=== PATIENT | male | born 1965 | race Caucasian/White ===

== ENCOUNTER → 2023-04-01 | Outpatient (CLI) | payer OTHER ==
--- NOTE | 2023-04-02 06:37 | MR ---
EXAMINATION TYPE: MR lumbar spine wo con DATE OF EXAM: 04/01/2023 COMPARISON: NONE HISTORY: Low back pain that radiates down both legs worse in left leg for one year. Neurogenic claudi cation and lumbar spondylolisthesis per order. TECHNIQUE: Multiplanar, multisequence imaging of the lumbar spine is performed without IV contrast. FINDINGS: There is levoconvex scoliosis centered at L3-L4 level . There is slight grade 1 retrolisthe sis L2 on L3, L3 and L4, and L4 on L5. Sagittal images of the lumbar spine show vertebral body height s to appear satisfactory. Multilevel disc desiccation is seen. There is advanced disc space narrowing with heterogeneous Modic type III endplate changes at the right L3-L4 level. There is moderate disc space narrowing with heterogeneous Modic type I endplate changes and vacuum disc phenomenon and L5-S1 level. There is gjep-hh-xoqwlgor disc space narrowing at L2-L3 level. The conus medullaris is raul l in position and signal ending at L1-L2 disc space level. Tiny posterior disc herniations efface the anterior thecal sac at T10-T11 and T11-T12 level sagittal image 11. Axial images at T12-L1 level appear within normal limits. Axial images at L1-L2 level show mild broad disc bulge minimally effacing the anterior thecal sac. Pa tent bilateral neural foramina. Axial images at L2-L3 level show spondylolisthesis with mild to moderate broad disc bulge mildly effa cing the anterior thecal sac. There is mild right-sided neural foraminal narrowing. Axial images at L3-L4 level show spondylolisthesis with moderate broad disc bulge having right latera l disc protrusion component. There is effacement of the anterior thecal sac. There is mild to moderat e bilateral facet arthropathy and ligamentum flavum hypertrophy. There is mild/moderate left and adva nced right-sided neural foraminal narrowing encroaching on the right L3 nerve axial image 14 and sagi ttal image 12. Axial images at L4-L5 level shows kzyu-vq-fskwjdvl facet arthropathy bilaterally. There is broad-base d posterior disc protrusion. There is mild to moderate right and more advanced left-sided neural fora jay narrowing encroaching on left L4 nerve sagittal image 4 and axial image 9. Axial images at L5-S1 level show mild to moderate facet arthropathy bilaterally. There is increased e pidural fat at this level. There is broad-based posterior disc protrusion. There is mild right with m ore moderate to severe left-sided neural foraminal narrowing sagittal image 6. Paraspinal muscle bulk is maintained. IMPRESSION: Scoliosis with multilevel spondylolisthesis and degenerative change in the mid to lower l umbar spine as detailed above. Bilateral exiting nerve encroachment is felt present.
== END | disposition home or self-care (01) ==
LOC: RADMRIMAIN 15:34
PROVIDERS: ATTEND Orthopaedic Surgery
DX: M43.16 Spondylolisthesis, lumbar region (principal); M47.816 Spondylosis without myelopathy or radiculopathy, lumbar region; M41.9 Scoliosis, unspecified
CPT/HCPCS: 72148

== ENCOUNTER → 2023-05-19 | Outpatient (CLI) | payer OTHER ==
[2023-05-19 14:39] VITALS: BP 117/80; PULSE 99; RESP 16; TEMP 98.2
--- NOTE | 2023-05-19 15:30 | P.PAINPG ---
PQRS Measure Charge Sheet Comment: HISTORY OF PRESENT ILLNESS: 57 yr old male w mother & sister at side as a referral from Dr Calderon presents today w severe and chronic LBP secondary to spondylolisthesis, DDD and facet arthropathy without myelopathy for evaluation. Pt states pain level is provoked at 8 /10 in intensity, constant, localized in the lower lumbar spine, sharp, achy in character w shooting pain towards the BLEs, L >R. Pain is provoked by walking, standing or driving for periods of 15 min r more. Pain is alleviated by medications (Suboxone, Flexeril, Sulindac), ice, Pt x 6 wks in March 2023, massage therapy without relief, chiropractic treatments without relief, sleeping w a wedge, bending, home based stretching regimen and rest. PMH: OA, HTN, MDD, GERD PSH: Tonsillectomy in childhood SH: Negative x3. Retired transportation maintenance worker. FH: Non contributory All: See list Meds: See list REVIEW OF ORGAN SYSTEMS: CONSTITUTIONAL: No fevers or chills. No recent weight loss. NEUROLOGICAL: + numbness and tingling along the distal extremities. No seizure disorders or headaches. MUSCULOSKELETAL: + pain PSYCHIATRIC: Denies current depression or suicidal thoughts. Physical Examinations : Constitutional : Cooperative , not in acute distress . Neurologic : Cranial nerve II to XII intact. No focal neurological deficits. Psychiatric : alert & oriented x 3. Matching mood & appropriate affect. Judgment & insight intact. Musculoskeletal : Cervical Spine Motor strength in the deltoid and biceps: Normal right side. Normal Left side Motor strength biceps and the wrist extensors: Normal right side . Normal left side Motor strength in the triceps muscle: Normal right side. Normal left side Deep tendon reflexes: Normal at the biceps. Normal at Brachioradialis. Normal at triceps Vertebral body tenderness to deep palpation over Cervical facet loading test: positive bilaterally Spurling test: positive bilaterally Neck distraction test: positive bilaterally Krishna sign: positive bilaterally Lumbar spine Motor strength lower extremities ,thigh and legs 5/5 Right side , 5/5 Left side Deep tendon reflexes : Normal Knee Jerk. Normal Ankle Jerk Vertebral body tenderness over L4 Pope Test positive Lumbar facet Loading Test: positive Right / positive Left Range of motion of the lumbar spine Flexion 30 degrees, extension 10 degrees Straight Leg Raise test: Left/ Right positive at <45 degrees Montez test: positive right / positive left. Severe tenderness over the Sacroiliac joint on the Right / Left sides Gaenslen test: positive bilaterally Seated flexion test: positive bilaterally. Sacral spine : Severe tenderness over the Sacroiliac joint: right side / left side Range of motion: Flexion of the lumbar spine <60 degrees Range of motion: Extension of the lumbar spine <20 degrees Gaenslen's Test positive Frank's Test positive Montez test: positive right side / left side Thigh Thrust Test Sacral Thrust Test Imaging: MRI noncontrast of the lumbar spine. 04/01/23 reviewed Assessment/ Plan : Lumbar spondylolisthesis Recommendation of MARGARETH L3-L4. May need a series of injections for optimal pain relief. Risks, benefits of procedure discussed and patient verbalized understanding. Admits to aspirin or anti- coagulant use or medical history of d iabetes. Protocol for discontinuation/ continuation of medications patti procedure discussed. Minimal anesthesia provided, if clinically indicated, consisting of Versed and Fentanyl. All questions answered. I have spent greater than 30 minutes on patient care today. Dr Spencer was available by phone for the evaluation of this patient. The time was used to review the medical records including relevant urine studies and Prescription history (MAPs), review of the available imaging, evaluation and examination of the patient, coordination of care with the medical staff and if applicable referring physicians, as well as creation of the medical record Controlled Substance Measures - Controlled Substance Measures Is patient prescribed a controlled substance at discharge?: No
== END ==
LOC: PNWHC3 12:47
PROVIDERS: ATTEND Specialist
DX: M43.16 Spondylolisthesis, lumbar region (principal); M48.062 Spinal stenosis, lumbar region with neurogenic claudication; M51.36 Other intervertebral disc degeneration, lumbar region; G89.29 Other chronic pain; M41.86 Other forms of scoliosis, lumbar region; M19.90 Unspecified osteoarthritis, unspecified site; M54.16 Radiculopathy, lumbar region; I10 Essential (primary) hypertension; K21.9 Gastro-esophageal reflux disease without esophagitis; F32.9 Major depressive disorder, single episode, unspecified; Z88.0 Allergy status to penicillin; Z79.899 Other long term (current) drug therapy
CPT/HCPCS: 99202

== ENCOUNTER → 2023-06-22 | Day surgery (SDC) | payer OTHER ==
[~2023-06-22] MED LIST: IOPAMIDOL M200 10 ML VIAL ONE; LACTATED RINGERS 1,000 ML IV SCH; methylPREDNISolone ACETATE 80 MG/ML 1 ML VIAL ONE
[2023-06-22 11:15] VITALS: RESP 16; TEMP 98
--- NOTE | 2023-06-22 11:40 | P.PCN ---
Date of Procedure: 06/22/23 Procedure(s) Performed: PREOPERATIVE DIAGNOSIS: 1- Lumbar Degenerative Disc Diseases 2-Lumbar spondylosis with Facet arthropathy without myelopathy POSTOPERATIVE DIAGNOSIS: 1-lumbar degenerative disc disease. 2-lumbar spondylosis with facet arthropathy without myelopathy. PROCEDURE 1. Lumbar epidural steroid injection under fluoroscopic guidance at the L3- 4level. (Fluoroscopy imaging was available in radiology department) 2. Lumbar epidurogram. ANESTHESIA: Lidocaine 1% 3 and then only. EBL: Minimal PROCEDURE INDICATION: The patient with low back pain and radiculitis symptoms unresponsive to conservative treatment. Fluoroscopy was used to optimize visualization of the needle placement and to maximize safety. PROCEDURE DESCRIPTION / TECHNIQUE: The patient was seen and identified in the preoperative area. Risks, benefits, complications including but not limited to infections ,bleeding ,allergic reaction to the medications ,nerve damage and not complete pain releife , and alternatives were discussed with the patient. The patient agreed to proceed with the procedure and signed the consent, and vital signs were stable. Patient was taken to the OR and time out was completed. The patient was placed in the prone position on procedure table and a pillow was placed under the abdomen to reduce lumbar lordosis. The lumbosacral area was prepped and draped in the usual sterile fashion.ere closely monitored during the procedure. Vital signs was monitered during the entire procedure. Using anterior-posterior fluoroscopy, the L3-4 interlaminar space was identified and the skin over this site was marked and then infiltrated with 1% lidocaine subcutaneously. Subsequently, a 20-gauge Tuohy epidural needle was inserted and advanced toward the epidural space using the ``Loss of resistance technique and guided by AP and lateral fluoroscopy. The correct needle position in the epidural space was verified with the injection of 2 mL of the water soluble contrast dye Isovue 200 contrast and observing an excellent epidurogram with the epidural spread of the dye, after negative aspiration for blood and CSF and in the absence of paresthesias. Again after negative aspiration, a 6 ml mixture containing 80 mg of Depo-medrol ( Preservetive Free ), and 2 ml of preservative free Normal Saline, and 2 ml of preservative free lidocaine 1% solution was injected and a washout of epidurogram was seen. Needle was withdrawn intact, skin was cleansed, and bandages were applied. COMPLICATIONS: None DISPOSITION / PLANS: The patient was placed in a supine position and transferred to the recovery area in a stable condition for observation. There was no eviden ce of lower extremity motor or sensory deficit after the procedure. Patient was discharged from the recovery room after meeting discharge criteria. Home discharge instructions were given to the patient by the staff. The patient was reexamined prior to discharge. The patient will schedule a follow up in the clinic in 2-4 weeks.
[2023-06-22 11:58] VITALS: BP 95/66; PULSE 52
--- NOTE | 2023-06-22 12:05 | FL ---
Intraoperative/procedural fluoroscopic services were provided. Total fluoroscopy time is 2.3 seconds with a total of 1 submitted images to PACS. Please see the operative/procedural note for further deta ils. DAP: [id number] mGym2
== END ==
LOC: ORPAIN 10:58
PROVIDERS: ATTEND Specialist
DX: M51.16 Intervertebral disc disorders with radiculopathy, lumbar region (principal); M47.816 Spondylosis without myelopathy or radiculopathy, lumbar region; Z88.8 Allergy status to other drugs, medicaments and biological substances
CPT/HCPCS: 62323; J1040; Q9966

== ENCOUNTER → 2023-07-14 | Outpatient (CLI) | payer OTHER ==
[2023-07-14 14:28] VITALS: BP 104/65; PULSE 79; RESP 15; TEMP 97.2
--- NOTE | 2023-07-15 07:55 | P.PAINPG ---
PQRS Measure Charge Sheet Comment: HISTORY OF PRESENT ILLNESS: 57 yr old male w mother & sister at side presents today w severe and chronic LBP secondary to spondylolisthesis, DDD and facet arthropathy without myelopathy for evaluation s/p MARGARETH L3-L4. Pt states he experienced 60% pain relief x 2 1/2 wks s/p procedure. Pt states pain level is provoked at 8 /10 in intensity, constant, localized in the lower lumbar spine, sharp, achy in character w shooting pain towards the BLEs, L >R. Pain is provoked by walking, standing or driving for periods of 15 min r more. Pain is alleviated by medications, ice, PT x 6 wks in March 2023, massage therapy without relief, chiropractic treatments without relief, sleeping w a wedge, bending, home based stretching regimen and rest. Oswestry axial pain score of 24. Interventional procedures include MARGARETH L3-L4 x1 Medications include Suboxone, Flexeril, Sulindac, ASA REVIEW OF ORGAN SYSTEMS: CONSTITUTIONAL: No fevers or chills. No recent weight loss. NEUROLOGICAL: + numbness and tingling along the distal extremities. No seizure disorders or headaches. MUSCULOSKELETAL: + pain PSYCHIATRIC: Denies current depression or suicidal thoughts. Physical Examinations : Constitutional : Cooperative , not in acute distress . Neurologic : Cranial nerve II to XII intact. No focal neurological deficits. Psychiatric : alert & oriented x 3. Matching mood & appropriate affect. Judgment & insight intact. Musculoskeletal : Cervical Spine Motor strength in the deltoid and biceps: Normal right side. Normal Left side Motor strength biceps and the wrist extensors: Normal right side . Normal left side Motor strength in the triceps muscle: Normal right side. Normal left side Deep tendon reflexes: Normal at the biceps. Normal at Brachioradialis. Normal at triceps Vertebral body tenderness to deep palpation over Cervical facet loading test: positive bilaterally Spurling test: positive bilaterally Neck distraction test: positive bilaterally Krishna sign: positive bilaterally Lumbar spine Motor strength lower extremities ,thigh and legs 5/5 Right side , 5/5 Left side Deep tendon reflexes : Normal Knee Jerk. Normal Ankle Jerk Vertebral body tenderness over L4 Pope Test positive over BL L3-L4 Lumbar facet Loading Test: positive Right / positive Left Range of motion of the lumbar spine Flexion 30 degrees, extension 10 degrees Straight Leg Raise test: Left/ Right positive at degrees Montez test: positive right / positive left. Severe tenderness over the Sacroiliac joint on the Right / Left sides Gaenslen test: positive bilaterally Seated flexion test: positive bilaterally. Sacral spine : Severe tenderness over the Sacroiliac joint: right side / left side Range of motion: Flexion of the lumbar spine <60 degrees Range of motion: Extension of the lumbar spine <20 degrees Gaenslen's Test positive Frank's Test positive Montez test: positive right side / left side Thigh Thrust Test Sacral Thrust Test Imaging: MRI noncontrast of the lumbar spine. 04/01/23 reviewed Assessment/ Plan : Lumbar spondylolisthesis Recommendation of MARGARETH L3-L4 #2. May need a series of injections for optimal pain relief. Risks, benefits of procedure discussed and patient verbalized understanding. Admits to aspirin or anti- coagulant use or medical history of diabetes. Protocol for discontinuation/ continuation of medications patti procedure discussed. Minimal anesthesia provided, if clinically indicated, consisting of Versed and Fentanyl. All questions answered. I have spent greater than 30 minutes on patient care today. Dr Spencer was available by phone for the evaluation of this patient. The time was used to review the medical records including relevant urine studies and Prescription history (MAPs), review of the available imaging, evaluation and examination of the patient, coordination of care with the medical staff and if applicable referring physicians, as well as creation of the medical record PQRS Narrative: Hx Alcohol Use (MH) No Home Medications: Ambulatory Orders Atorvastatin [Lipitor] 20 mg PO HS 05/19/23 Buprenorphine/Naloxone 8Mg/2Mg [Suboxone 8-2Mg Film] 1 film SL BID 05/19/23 Citalopram Hydrobromide [CeleXA] 20 mg PO DAILY 05/19/23 Cyclobenzaprine HCl 1 tab PO DAILY 05/19/23 Lisinopril-Hctz 20-12.5 mg [Zestoretic 20-12.5] 1 tab PO DAILY 05/19/23 Omeprazole [PriLOSEC] 1 tab PO DAILY 05/19/23 Aspirin [Aspirin EC] 500 mg PO BID 06/16/23 Sulindac 150 mg PO BID 06/16/23 Controlled Substance Measures - Controlled Substance Measures Is patient prescribed a controlled substance at discharge?: No
== END ==
LOC: PNWHC3 13:33
PROVIDERS: ATTEND Specialist
DX: M43.16 Spondylolisthesis, lumbar region (principal); Z88.0 Allergy status to penicillin
CPT/HCPCS: 99211

== ENCOUNTER → 2023-08-03 | Day surgery (SDC) | payer OTHER ==
[~2023-08-03] MED LIST changes: +LIDOCAINE 1% INJ 10MG/ML (20 ML MDV) ONE
[2023-08-03 12:46] VITALS: TEMP 98
--- NOTE | 2023-08-03 13:29 | P.PCN ---
Date of Procedure: 08/03/23 Procedure(s) Performed: PREOPERATIVE DIAGNOSIS: 1- Lumbar Degenerative Disc Diseases 2-Lumbar spondylosis with Facet arthropathy without myelopathy POSTOPERATIVE DIAGNOSIS: 1-lumbar degenerative disc disease. 2-lumbar spondylosis with facet arthropathy without myelopathy. PROCEDURE 1. Lumbar epidural steroid injection under fluoroscopic guidance at the L3-4 level. (Fluoroscopy imaging was available in radiology department) 2. Lumbar epidurogram. ANESTHESIA: Lidocaine 1% 3 and then only. EBL: Minimal PROCEDURE INDICATION: The patient with low back pain and radiculitis symptoms unresponsive to conservative treatment. Fluoroscopy was used to optimize visualization of the needle placement and to maximize safety. PROCEDURE DESCRIPTION / TECHNIQUE: The patient was seen and identified in the preoperative area. Risks, benefits, complications including but not limited to infections ,bleeding ,allergic reaction to the medications ,nerve damage and not complete pain releife , and alternatives were discussed with the patient. The patient agreed to proceed with the procedure and signed the consent, and vital signs were stable. Patient was taken to the OR and time out was completed. The patient was placed in the prone position on procedure table and a pillow was placed under the abdomen to reduce lumbar lordosis. The lumbosacral area was prepped and draped in the usual sterile fashion.ere closely monitored during the procedure. Vital signs was monitered during the entire procedure. Using anterior-posterior fluoroscopy, the L3-4 interlaminar space was identified and the skin over this site was marked and then infiltrated with 1% lidocaine subcutaneously. Subsequently, a 20-gauge Tuohy epidural needle was inserted and advanced toward the epidural space using the ``Loss of resistance technique and guided by AP and lateral fluoroscopy. The correct needle position in the epidural space was verified with the injection of 2 mL of the water soluble contrast dye Isovue 200 contrast and observing an excellent epidurogram with the epidural spread of the dye, after negative aspiration for blood and CSF and in the absence of paresthesias. Again after negative aspiration, a 6 ml mixture containing 80 mg of Depo-medrol ( Preservetive Free ), and 2 ml of preservative free Normal Saline, and 2 ml of preservative free lidocaine 1% solution was injected and a washout of epidurogram was seen. Needle was withdrawn intact, skin was cleansed, and bandages were applied. COMPLICATIONS: None DISPOSITION / PLANS: The patient was placed in a supine position and transferred to the recovery area in a stable condition for observation. There was no evidence of lower extremity motor or sensory deficit after the procedure. Patient was discharged from the recovery room after meeting discharge criteria. Home discharge instructions were given to the patient by the staff. The patient was reexamined prior to discharge. The patient will schedule a follow up in the clinic in 2-4 weeks.
[2023-08-03 13:36] VITALS: BP 107/83; PULSE 106; RESP 14
--- NOTE | 2023-08-03 20:21 | FL ---
EXAMINATION TYPE: FL guided pain mgmt statistic DATE OF EXAM: 08/03/2023 HISTORY: Fluoroscopy time Total dose area product (DAP) in uGy*m?, mGy*cm? (or similar): 0.13694 IMPRESSION: 1. Fluoroscopy time.
== END ==
LOC: ORPAIN 11:59
PROVIDERS: ATTEND Specialist
DX: M51.16 Intervertebral disc disorders with radiculopathy, lumbar region (principal); M47.26 Other spondylosis with radiculopathy, lumbar region; Z88.0 Allergy status to penicillin
CPT/HCPCS: 62323; J1040; J2001; Q9966

== ENCOUNTER → 2023-08-26 | Outpatient (CLI) | payer OTHER ==
[2023-08-26 13:46] VITALS: BP 137/74; PULSE 99; RESP 15; TEMP 98.7
--- NOTE | 2023-08-26 14:42 | P.PAINPG ---
PQRS Measure Charge Sheet Comment: HISTORY OF PRESENT ILLNESS: 57 yr old male w mother & sister at side presents today w severe and chronic LBP secondary to spondylolisthesis, DDD and facet arthropathy without myelopathy for evaluation s/p MARGARETH L3-L4 #2. Pt states he experienced 60% pain relief x 2 1/2 wks s/p procedure. Pt states pain level is provoked at 4 /10 in intensity, constant, localized in the lower lumbar spine, sharp, achy in character w shooting pain L & R of midline. Pain is provoked by walking, standing for periods of 15 min or more. Pain is alleviated by medications, ice, PT x 6 wks in March 2023, massage therapy without relief, chiropractic treatments without relief, sleeping w a wedge, bending, physician guided home based stretching regimen every morning since March 2023, repositioning and rest. Oswestry axial pain score of 22. Interventional procedures include MARGARETH L3-L4 x2 Medications include Suboxone, Flexeril, Sulindac, ASA REVIEW OF ORGAN SYSTEMS: CONSTITUTIONAL: No fevers or chills. No recent weight loss. NEUROLOGICAL: + numbness and tingling along the distal ex tremities. No seizure disorders or headaches. MUSCULOSKELETAL: + pain PSYCHIATRIC: Denies current depression or suicidal thoughts. Physical Examinations : Constitutional : Cooperative , not in acute distress . Neurologic : Cranial nerve II to XII intact. No focal neurological deficits. Psychiatric : alert & oriented x 3. Matching mood & appropriate affect. Judgment & insight intact. Musculoskeletal : Cervical Spine Motor strength in the deltoid and biceps: Normal right side. Normal Left side Motor strength biceps and the wrist extensors: Normal right side . Normal left side Motor strength in the triceps muscle: Normal right side. Normal left side Deep tendon reflexes: Normal at the biceps. Normal at Brachioradialis. Normal at triceps Vertebral body tenderness to deep palpation over Cervical facet loading test: positive bilaterally Spurling test: positive bilaterally Neck distraction test: positive bilaterally Krishna sign: positive bilaterally Lumbar spine Motor strength lower extremities ,thigh and legs 5/5 Right side , 5/5 Left side Deep tendon reflexes : Normal Knee Jerk. Normal Ankle Jerk Vertebral body tenderness over L4 Pope Test positive over BL L3-L4 Lumbar facet Loading Test: positive Right / positive Left over BL L4-L5, L5-S1 Range of motion of the lumbar spine Flexion 30 degrees, extension 10 degrees Straight Leg Raise test: Left/ Right positive at degrees Montez test: positive right / positive left. Severe tenderness over the Sacroiliac joint on the Right / Left sides Gaenslen test: positive bilaterally Seated flexion test: positive bilateral ly. Sacral spine : Severe tenderness over the Sacroiliac joint: right side / left side Range of motion: Flexion of the lumbar spine <60 degrees Range of motion: Extension of the lumbar spine <20 degrees Gaenslen's Test positive Frank's Test positive Montez test: positive right side / left side Thigh Thrust Test Sacral Thrust Test Imaging: MRI noncontrast of the lumbar spine. 04/01/23 reviewed Assessment/ Plan : Lumbar spondylolisthesis Recommendation of ROBERTA MBB L4-L5, L5-S1 #1. May need a series of injections, up until RFA, for optimal pain relief. Risks, benefits of procedure discussed and patient verbalized understanding. Admits to aspirin or anti- coagulant use or medical history of diabetes. Protocol for discontinuation/ continuation of medications patti procedure discussed. Minimal anesthesia provided, if clinically indicated, consisting of Versed and Fentanyl. All questions answered. I have spent greater than 30 minutes on patient care today. Dr Spencer was available by phone for the evaluation of this patient. The time was used to review the medical records including relevant urine studies and Prescription history (MAPs), review of the available imaging, evaluation and examination of the patient, coordination of care with the medical staff and if applicable referring physicians, as well as creation of the medical record PQRS Narrative: Hx Alcohol Use (MH) No Home Medications: Ambulatory Orders Atorvastatin [Lipitor] 20 mg PO HS 05/19/23 Buprenorphine/Naloxone 8Mg/2Mg [Suboxone 8-2Mg Film] 1 film SL BID 05/19/23 Citalopram Hydrobromide [CeleXA] 20 mg PO DAILY 05/19/23 Cyclobenzaprine HCl 1 tab PO DAILY 05/19/23 Lisinopril-Hctz 20-12.5 mg [Zestoretic 20-12.5] 1 tab PO DAILY 05/19/23 Omeprazole [PriLOSEC] 1 tab PO DAILY 05/19/23 Aspirin [Aspirin EC] 500 mg PO BID 06/16/23 Sulindac 150 mg PO BID 06/16/23 Controlled Substance Measures - Controlled Substance Measures Is patient prescribed a controlled substance at discharge?: No
== END ==
LOC: PNWHC3 13:11
PROVIDERS: ATTEND Specialist
DX: M43.16 Spondylolisthesis, lumbar region (principal); Z79.82 Long term (current) use of aspirin; Z88.0 Allergy status to penicillin
CPT/HCPCS: 99211

== ENCOUNTER → 2023-10-15 | Day surgery (SDC) | payer OTHER ==
[~2023-10-15] MED LIST changes: -IOPAMIDOL M200 10 ML VIAL ONE; -LIDOCAINE 1% INJ 10MG/ML (20 ML MDV) ONE; +MIDAZOLAM 2 MG/2 ML VIAL ONE; +ROPIVACAINE 5MG/ML 20ML VIAL ONE; +fentaNYL (PF) 50 MCG/ML 2 ML AMP ONE; +methylPREDNISolone ACETATE 40 MG/ML 1 ML VIAL ONE; -methylPREDNISolone ACETATE 80 MG/ML 1 ML VIAL ONE
[2023-10-15 09:54] VITALS: RESP 16; TEMP 97
--- NOTE | 2023-10-15 10:30 | P.PCN ---
Date of Procedure: 10/15/23 Procedure(s) Performed: PREOPERATIVE DIAGNOSIS : 1- Lumbar spondylosis with Facet Arthropathy without myelopathy . 2- Lumber degenerative disc disease POSTOPERATIVE DIAGNOSIS: 1- Lumbar spondylosis with Facet Arthropathy without myelopathy . 2- Lumber degenerative disc disease PROCEDURE: Diagnostic bilateral L3 , L4 , and L5 medial branch block under fluoroscopy guidance(fluoroscopy images available in the radiology Department ) ( To target the facet joint between Bilateral L4-5 , and L5-S1 )# 1St ANESTHESIA:, Monitored anesthesia care as per anesthesia department. EBL: Minimal COMPLICATION: None PROCEDURE INDICATION: Chronic low back pain secondary to Facet arthropathy unresponsive to conservative treatment. PROCEDURE DESCRIPTION: the patient was seen and identified in the preop holding area , risks and benefits and possible complications of the procedure and alternative were discussed with the patient, and the patient agreed to proceed with the procedure and signed the consent and vital signs monitored during the procedure and fluoroscopy was used to maximize the benefit and accuracy of the needle placement, and sedation was given to decrease patient anxiety, patient was taken to the procedure room and placed in prone position vital signs monitored in the back prepped with chlorhexidine X3 then under strict sterile technique using a right oblique fluoroscopy ,the junction of the transverse process and the superior articulating process of the right L3 , L4 , and L5 vertebra which corresponding to the fluoroscopy image of the eye of the Hitesh dog on the block side for the medial branches and subsequently , after local infiltration of skin and subcu tissuies with Ropivacaine 0.5 % , one mL at each level ,then 22-gauge Quincke-type needles , 3 needle was used , each one of them placed at the junction of the base of the transverse process and the superior articular process at the appropriate level, and the needle was advanced until the periosteum contacted, needle placement confirmed with AP oblique and lateral view and after appropriate needle placement confirmed, and after negative aspiration for heme and CSF and there was no paresthesia 1-1/2 mL of Ropivacaine 0.5% mixed with 20 mg Depo-Medrol , then half mL injected at each level after negative aspiration the needle subsequently removed and the same procedure repeated for the left side at left side at L3 , L4 and L5 levels. At the end of the procedure and the needles removed and a bandage applied after the skin was cleaned the cleaning solution patient taken to recovery room in stable condition and monitors in the recovery room for 20-30 minutes and discharged home in stable condition after discharge criteria met and patient will follow up with the pain clinic in 2-4 weeks
--- NOTE | 2023-10-15 10:43 | FL ---
Intraoperative/procedural fluoroscopic services were provided. Total fluoroscopy time is 1.8 seconds with a total of 4 submitted images to PACS. Please see the operative/procedural note for further deta ils. DAP: 0.57405 mGym2
[2023-10-15 10:50] VITALS: BP 132/89; PULSE 89
== END ==
LOC: ORPAIN 09:27
PROVIDERS: ATTEND Pain Medicine Interventional Pain Medicine
DX: M51.36 Other intervertebral disc degeneration, lumbar region (principal); M47.816 Spondylosis without myelopathy or radiculopathy, lumbar region; I10 Essential (primary) hypertension; E78.5 Hyperlipidemia, unspecified; F17.210 Nicotine dependence, cigarettes, uncomplicated; M19.90 Unspecified osteoarthritis, unspecified site; K21.9 Gastro-esophageal reflux disease without esophagitis; Z88.0 Allergy status to penicillin; Z79.82 Long term (current) use of aspirin; Z79.899 Other long term (current) drug therapy; Z98.890 Other specified postprocedural states
CPT/HCPCS: 64493; 64494 ×2; J2250; J1030; J3010; J2795

== ENCOUNTER → 2023-11-18 | Outpatient (CLI) | payer OTHER ==
--- NOTE | 2023-11-18 13:30 | P.PAINPG ---
PQRS Measure Charge Sheet Comment: HISTORY OF PRESENT ILLNESS: A 57 yr old male w sister at side presents today w severe and chronic LBP secondary to spondylolisthesis, DDD and facet arthropathy without myelopathy for evaluation s/p BL MBB L3-L5 #1. Pt states he experienced 90 % pain relief x 3 wks s/p procedure. Pt states pain level is provoked at 6 /10 in intensity, constant, localized in the lower lumbar spine, sharp/ achy in character w shooting pain L & R of midline. Pain is provoked by walking, standing for periods of 15 min or more. Pain is alleviated by medications, ice, PT x 6 wks in March 2023, massage therapy without relief, chiropractic treatments without relief, sleeping w a wedge, bending, physician guided home based stretching regimen every morning since March 2023, repositioning and rest. Oswestry axial pain score of 21. Interventional procedures include MARGARETH L3-L4 x2, BL MBB L3-L5 x1 Medications include Suboxone 8-2mg #30, Flexeril 5mg #90, Sulindac 200mg #60, ASA REVIEW OF ORGAN SYSTEMS: CONSTITUTIONAL: No fevers or chills. No recent weight loss. NEUROLOGICAL: + numbness and tingling along the distal extremities. No seizure disorders or headaches. MUSCULOSKELETAL: + pain PSYCHIATRIC: Denies current depression or suicidal thoughts. Physical Examinations : Constitutional : Cooperative , not in acute distress . Neurologic : Cranial nerve II to XII intact. No focal neurological deficits. Psychiatric : alert & oriented x 3. Matching mood & appropriate affect. Judgment & insight intact. Musculoskeletal : Cervical Spine Motor strength in the deltoid and biceps: Normal right side. Normal Left side Motor strength biceps and the wrist extensors: Normal right side . Normal left side Motor strength in the triceps muscle: Normal right side. Normal left side Deep tendon reflexes: Normal at the biceps. Normal at Brachioradialis. Normal at triceps Vertebral body tenderness to deep palpation over Cervical facet loading test: positive bilaterally Spurling test: positive bilaterally Neck distraction test: positive bilaterally Krishna sign: positive bilaterally Lumbar spine Motor strength lower extremities ,thigh and legs 5/5 Right side , 5/5 Left side Deep tendon reflexes : Normal Knee Jerk. Normal Ankle Jerk Vertebral body tenderness over L4 Pope Test positive over BL L3-L4 Lumbar facet Loading Test: positive Right / positive Left over BL L4-L5, L5-S1 Range of motion of the lumbar spine Flexion 30 degrees, extension 10 degrees Straight Leg Raise test: Left/ Right positive at degrees Montez test: positive right / positive left. Severe tenderness over the Sacroiliac joint on the Right / Left sides Gaenslen test: positive bilaterally Seated flexion test: positive bilaterally. Sacral spine : Severe tenderness over the Sacroiliac joint: right side / left side Range of motion: Flexion of the lumbar spine <60 degrees Range of motion: Extension of the lumbar spine <20 degrees Gaenslen's Test positive Frank's Test positive Montez test: positive right side / left side Thigh Thrust Test Sacral Thrust Test Imaging: MRI noncontrast of the lumbar spine. 04/01/23 reviewed Assessment/ Plan : Lumbar spondylolisthesis Recommendation of BL MBB L4-L5, L5-S1 #2. May need a series of injections, up until RFA, for optimal pain relief. Risks, benefits of procedure discussed and patient verbalized understanding. Admits to aspirin or anti- coagulant use or medical history of diabetes. Protocol for discontinuation/ continuation of medications patti procedure discussed. Minimal anesthesia provided, if clinically indicated, consisting of Versed and Fentanyl. Recommendation of medication refills. Flexeril 5mg #90, Sulindac 200mg #60, Suboxone 8-2mg #30 1 RF. Narcotic agreement signed 11/18/22. Pt stated he will stop cannabis use completely to adhere to the narcotic agreement. All questions answered. I have spent greater than 30 minutes on patient care today. Dr Spencer was available by phone for the evaluation of this patient. The time was used to review the medical records including relevant urine studies and Prescription history (MAPs), review of the available imaging, evaluation and examination of the patient, coordination of care with the medical staff and if applicable referring physicians, as well as creation of the medical record PQRS Narrative: Hx Alcohol Use (MH) No Home Medications: Ambulatory Orders Buprenorphine/Naloxone 8Mg/2Mg [Suboxone 8-2Mg Film] 1 film SL BID 05/19/23 Lisinopril-Hctz 20-12.5 mg [Zestoretic 20-12.5] 1 tab PO BID 05/19/23 Omeprazole [PriLOSEC] 1 tab PO DAILY 05/19/23 Aspirin [Aspirin EC] 500 mg PO QID 06/16/23 Buprenorphine HCl/Naloxone HCl [Suboxone 8 mg-2 mg Sl Film] 1 film SL DAILY 30 Days #30 film 11/18/23 Cyclobenzaprine HCl 1 tab PO TID PRN 30 Days #90 tab 11/18/23 Sulindac 200 mg PO BID 30 Days #60 tab 11/18/23 Controlled Substance Measures - Controlled Substance Measures Is patient prescribed a controlled substance at discharge?: Yes When asked, does pt state using other controlled substances?: Yes If prescribed controlled substance>3 days was MAPS reviewed?: Yes If Rx opioid, was Start Talking consent form obtained?: Yes Was information provided regarding opioid addiction?: Yes
[2023-11-18 14:36] VITALS: BP 130/86; PULSE 67; RESP 16
== END ==
LOC: PNWHC3 13:01
PROVIDERS: ATTEND Specialist
DX: M43.17 Spondylolisthesis, lumbosacral region (principal); Z79.82 Long term (current) use of aspirin; Z88.0 Allergy status to penicillin
CPT/HCPCS: 99211

== ENCOUNTER 2023-12-02 08:56 | Day surgery (SDC) | payer OTHER ==
[2023-11-26 15:53] VITALS: BMI 28.7
[~2023-12-02 08:56] MED LIST changes: -MIDAZOLAM 2 MG/2 ML VIAL ONE; -ROPIVACAINE 5MG/ML 20ML VIAL ONE; -fentaNYL (PF) 50 MCG/ML 2 ML AMP ONE; -methylPREDNISolone ACETATE 40 MG/ML 1 ML VIAL ONE
[2023-12-02 09:19] VITALS: RESP 16; TEMP 97
[2023-12-02] MEDS ORDERED: MIDAZOLAM 2 MG/2 ML VIAL ONE (10:07)
[2023-12-02] MEDS ORDERED: fentaNYL (PF) 50 MCG/ML 2 ML AMP ONE (10:07)
[2023-12-02] MEDS ORDERED: ROPIVACAINE 5MG/ML 20ML VIAL ONE (10:07)
[2023-12-02] MEDS ORDERED: methylPREDNISolone ACETATE 40 MG/ML 1 ML VIAL ONE (10:07)
--- NOTE | 2023-12-02 10:21 | P.PCN ---
Date of Procedure: 12/02/23 Procedure(s) Performed: PREOPERATIVE DIAGNOSIS : 1- Lumbar spondylosis with Facet Arthropathy without myelopathy . 2- Lumber degenerative disc disease POSTOPERATIVE DIAGNOSIS: 1- Lumbar spondylosis with Facet Arthropathy without myelopathy . 2- Lumber degenerative disc disease PROCEDURE: Diagnostic bilateral L3 , L4 , and L5 medial branch block under fluoroscopy guidance(fluoroscopy images available in the radiology Department ) ( To target the facet joint between Bilateral L4-5 , and L5-S1 )# 2 nd ANESTHESIA:, Moderate sedations with versed 2 mg ,and Fentanyle 50 Mcg ( sedations started at 10:07 , ended at 10:18 ) EBL: Minimal COMPLICATION: None PROCEDURE INDICATION: Chronic low back pain secondary to Facet arthropathy unresponsive to conservative treatment. PROCEDURE DESCRIPTION: the patient was seen and identified in the preop holding area , risks and benefits and possible complications of the procedure and alternative were discussed with the patient, and the patient agreed to proceed with the procedure and signed the consent and vital signs monitored during the procedure and fluoroscopy was used to maximize the benefit and accuracy of the needle placement, and sedation was given to decrease patient anxiety, patient was taken to the procedure room and placed in prone position vital signs monitored in the back prepped with chlorhexidine X3 then under strict sterile technique using a right oblique fluoroscopy ,the junction of the transverse process and the superior articulating process of the right L3 , L4 , and L5 vertebra which corresponding to the fluoroscopy image of the eye of the Hitesh dog on the block side for the medial branches and subsequently , after local infiltration of skin and subcu tissuies with Ropivacaine 0.5 % , one mL at each level ,then 22-gauge Quincke-type needles , 3 needle was used , each one of them placed at the junction of the base of the transverse process and the superior articular process at the appropriate level, and the needle was advanced until the periosteum contacted, needle placement confirmed with AP oblique and lateral view and after appropriate needle placement confirmed, and after nega tive aspiration for heme and CSF and there was no paresthesia 1-1/2 mL of Ropivacaine 0.5% mixed with 20 mg Depo-Medrol , then half mL injected at each level after negative aspiration the needle subsequently removed and the same procedure repeated for the left side at left side at L3 , L4 and L5 levels. At the end of the procedure and the needles removed and a bandage applied after the skin was cleaned the cleaning solution patient taken to recovery room in stable condition and monitors in the recovery room for 20-30 minutes and discharged home in stable condition after discharge criteria met and patient will follow up with the pain clinic in 2-4 weeks
[2023-12-02] MEDS ORDERED: IV FLUID CONTINUATION 500 ML IV ONE (10:26)
--- NOTE | 2023-12-02 10:52 | FL ---
EXAMINATION TYPE: FL guided pain mgmt statistic DATE OF EXAM: 12/02/2023 HISTORY: Fluoroscopy time Total dose area product (DAP) in uGy*m?, mGy*cm? (or similar): 0.34240 IMPRESSION: 1. Fluoroscopy time.
[2023-12-02 10:58] VITALS: BP 112/74; PULSE 73
== END 2023-12-02 11:00 | disposition home or self-care (01) ==
LOC: ORPAIN 08:56
PROVIDERS: ATTEND Specialist
DX: M47.816 Spondylosis without myelopathy or radiculopathy, lumbar region (principal); M51.36 Other intervertebral disc degeneration, lumbar region; G89.29 Other chronic pain; Z88.0 Allergy status to penicillin
CPT/HCPCS: 64493; 64494 ×2; 99152; J2250; J1030; J3010; J2795

== ENCOUNTER → 2024-01-13 | Outpatient (CLI) | payer OTHER ==
[2024-01-13 13:17] VITALS: BP 146/76; PULSE 85; RESP 15; TEMP 98.9
--- NOTE | 2024-01-13 14:21 | P.PAINPG ---
Objective - Vital Signs Vital signs: Intake & Output 01/12/24 01/13/24 01/13/24 18:59 06:59 18:59 Weight 79.832 kg PQRS Measure Charge Sheet Comment: HISTORY OF PRESENT ILLNESS: A 58 yr old male w sister at side presents today w severe and chronic LBP secondary to spondylolisthesis, DDD and facet arthropathy without myelopathy for evaluation s/p BL MBB L3-L5 #2. Pt states he experienced 80 % pain relief x 1 wk s/p procedure. Pt states pain level is provoked at 6 /10 in intensity, constant, localized in the lower lumbar spine, achy in character w shooting pain L & R of midline. Pain is provoked by walking, standing for periods of 15 min or more. Pain is alleviated by medications, ice, PT x 6 wks in March 2023, massage therapy without relief, chiropractic treatments without relief, sleeping w a wedge, bending, physician guided home based stretching regimen every morning since March 2023, repositioning and rest. Oswestry axial pain score of 20. Interventional procedures include MARGARETH L3-L4 x2, BL MBB L3-L5 x2 Medications include Suboxone 8-2mg #30, Flexeril 5mg #90, Sulindac 200mg #60, ASA REVIEW OF ORGAN SYSTEMS: CONSTITUTIONAL: No fevers or chills. No recent weight loss. NEUROLOGICAL: + numbness and tingling along the distal extremities. No seizure disorders or headaches. MUSCULOSKELETAL: + pain PSYCHIATRIC: Denies current depression or suicidal thoughts. Physical Examinations : Constitutional : Cooperative , not in acute distress . Neurologic : Cranial nerve II to XII intact. No focal neurological deficits. Psychiatric : alert & oriented x 3. Matching mood & appropriate affect. Judgment & insight intact. Musculoskeletal : Cervical Spine Motor strength in the deltoid and biceps: Normal right side. Normal Left side Motor strength biceps and the wrist extensors: Normal right side . Normal left side Motor strength in the triceps muscle: Normal right side. Normal left side Deep tendon reflexes: Normal at the biceps. Normal at Brachioradialis. Normal at triceps Vertebral body tenderness to deep palpation over Cervical facet loading test: positive bilaterally Spurling test: positive bilaterally Neck distraction test: positive bilaterally Krishna sign: positive bilaterally Lumbar spine Motor strength lower extremities ,thigh and legs 5/5 Right side , 5/5 Left side Deep tendon reflexes : Normal Knee Jerk. Normal Ankle Jerk Vertebral body tenderness over L4 Pope Test positive over BL L3-L4 Lumbar facet Loading Test: positive Right / positive Left over BL L4-L5, L5-S1 Range of motion of the lumbar spine Flexion 30 degrees, extension 10 degrees Straight Leg Raise test: Left/ Right positive at degrees Montez test: positive right / positive left. Severe tenderness over the Sacroiliac joint on the Right / Left sides Gaenslen test: positive bilaterally Seated flexion test: positive bilaterally. Sacral spine : Severe tenderness over the Sacroiliac joint: right side / left side Range of motion: Flexion of the lumbar spine <60 degrees Range of motion: Extension of the lumbar spine <20 degrees Gaenslen's Test positive Frank's Test positive Montez test: positive right side / lef t side Thigh Thrust Test Sacral Thrust Test Imaging: MRI noncontrast of the lumbar spine. 04/01/23 reviewed Assessment/ Plan : Lumbar spondylolisthesis Recommendation of BL RFA L4-L5, L5-S1. Exhibited optimal pain relief w prior Lumbar MBBs. Risks, benefits of procedure discussed and patient verbalized understanding. Admits to aspirin or anti- coagulant use or medical history of diabetes. Protocol for discontinuation/ continuation of medications patti procedure discussed. Minimal anesthesia provided, if clinically indicated, consisting of Versed and Fentanyl. Recommendation of medication refills. Flexeril 5mg #90, Sulindac 200mg #60, Suboxone 8-2mg #30 1 RF. Blood tox screen script provided 01/13/24. Narcotic agreement signed 11/18/22. Pt stated he will stop cannabis use completely to adhere to the narcotic agreement. All questions answered. I have spent greater than 30 minutes on patient care today. Dr Spencer was available by phone for the evaluation of this patient. The time was used to review the medical records including relevant urine studies and Prescription history (MAPs), review of the available imaging, evaluation and examination of the patient, coordination of care with the medical staff and if applicable referring physicians, as well as creation of the medical record - Pain Location Bilateral Lower Back Non-Pharmacological Interventions: Ice, Inactivity, Position/Reposition Pharmacological Interventions: Epidural, Scheduled Medication PQRS Narrative: Narcotic Agreement Date Signed 11/18/23 Hx Alcohol Use (MH) No Home Medications: Ambulatory Orders Lisinopril-Hctz 20-12.5 mg [Zestoretic 20-12.5] 1 tab PO BID 05/19/23 Omeprazole [PriLOSEC] 1 tab PO DAILY 05/19/23 Aspirin [Aspirin EC] 500 mg PO QID 06/16/23 Buprenorphine HCl/Naloxone HCl [Buprenorphine HCl/Naloxone HCl 8-2 mg] 1 tab SL DAILY 30 Days #30 tab 01/13/24 Buprenorphine HCl/Naloxone HCl [Suboxone 8 mg-2 mg Sl Film] 1 film SL DAILY 30 Days #30 film 01/13/24 Cyclobenzaprine HCl 1 tab PO TID PRN 30 Days #90 tab 01/13/24 Sulindac 200 mg PO BID 30 Days #60 tab 01/13/24 Controlled Substance Measures - Controlled Substance Measures Is patient prescribed a controlled substance at discharge?: Yes When asked, does pt state using other controlled substances?: No If prescribed controlled substance>3 days was MAPS reviewed?: Yes
== END ==
LOC: PNWHC3 12:06
PROVIDERS: ATTEND Specialist
DX: M47.817 Spondylosis without myelopathy or radiculopathy, lumbosacral region (principal); M43.16 Spondylolisthesis, lumbar region; Z79.82 Long term (current) use of aspirin; Z88.0 Allergy status to penicillin
CPT/HCPCS: 99211

== ENCOUNTER → 2024-01-13 | Outpatient (CLI) | payer OTHER ==
[2024-01-14 07:22] LABS: Serum Amphetamine Negative; Serum Barbiturates Negative; Serum Benzodiazepine Negative; Serum Cocaine Negative; Serum Methadone Negative; Serum Opiates Negative; Serum Phencyclidine Negative; Serum Propoxyphene Negative; Serum THC (Cannabis) Negative
== END | disposition home or self-care (01) ==
LOC: LABWHC1 13:02
PROVIDERS: ATTEND Physician Assistant Medical
DX: Z02.83 Encounter for blood-alcohol and blood-drug test (principal)
CPT/HCPCS: 36415; 80307

== ENCOUNTER 2024-02-11 11:35 | Day surgery (SDC) | payer OTHER ==
[2024-02-11 12:16] VITALS: RESP 16; TEMP 98
[2024-02-11] MEDS: LACTATED RINGERS 1,000 ML IV SCH (12:17)
[2024-02-11] MEDS ORDERED: MIDAZOLAM 2 MG/2 ML VIAL ONE (13:14)
[2024-02-11] MEDS ORDERED: fentaNYL (PF) 50 MCG/ML 2 ML AMP ONE (13:14)
[2024-02-11] MEDS ORDERED: ROPIVACAINE 5MG/ML 20ML VIAL ONE (13:19)
[2024-02-11] MEDS: IV FLUID CONTINUATION 700 ML IV ONE (14:01)
--- NOTE | 2024-02-11 14:06 | P.PCN ---
Description of Procedure: Preprocedure diagnosis. 1. Lumbar spondylosis with facet joint arthropathy without myelopathy. 2. Lumbar degenerative disc disease. Procedure diagnosis. 1. Lumbar spondylosis with facet joint arthropathy without myelopathy. Space 2. Lumbar degenerative disc disease. Procedure.Bilateral radiofrequency thermocoagulation L3, L4 and L5 medial branch, with fluoroscopic guidance (fluoroscopy images are available in the radiology department) (to Denervate the facet joint at bilateral L4- 5 and L5-S1 levels) Anesthesia. Monitored anesthesia care as per anesthesia department, moderate sedation with intravenous Versed 2 mg and fentanyl 100 g and local infiltration with ropivacaine 0.5%. Continuous verbal communication was maintained with patient. EBL minimal. Procedure indication. The patient with low back pain secondary to lumbar facet arthropathy who he had more than 50% relief of her pain with previous diagnostic lumbar medial branch block with local anesthetics.The patient was seen and identified in the preoperative area. Risks: Benefits, complications, including but not limited to risk of infection, bleeding, ALLERGIC reaction to the medications and no complete pain relief and alternatives were discussed with the patient, the patient admitted to proceed with the procedure and signed the consent. Procedure description/technique. Patient was taken to the OR and timeout was completed. The patient was placed in prone position on the procedure table. The lumbar area was prepped and draped in the usual sterile fashion. After injecting 5 ml of 1% Lidocaine subcutaneously,using AP and then oblique, lateral view of fluoroscopy, 18-gauge 100 mm radiofrequency cannula with a 10 mm active tip was advanced and guided by fluoroscopy at the junction of supirior articular process with RIGHT ala of the sacrum, transverse process of L4&L5. Each site then underwent positive sensory testing with 50 Hz and 0-1 V and negative motor testing at 2.5 Hz and 0-3 V with local stimulation but no radicular symptoms down the leg. Thereafter each sites underwent radiofrequency thermocoagulation at 80C for 90 seconds after injecting 1 mL of preservative- free 0.5% ropivacaine. Repeat radiofrequency ablation was done at each points after rotating the needle 180 with same setting. This same procedure was repeated twice on the LEFT side at the junction of superior articular process with ala of sacrum,transverse process of L4, L5 with the same settings after positive sensory,negative motor stimulation and infiltration of 1.0 ml 5% Ropivacaine at each site . RF needles were taken out. At the end of the procedure the skin was cleansed and Band-Aids were applied. Disposition patient tolerated the procedure well. No complication. She was placed in supine position and transferred to the recovery area in stable condition for observation and was discharged home from recovery room after meeti ng discharge criteria. Discharge instructions given to the patient by the staff. The patient were examined prior to discharge the patient will schedule a follow-up in the clinic in 2-4 weeks.
--- NOTE | 2024-02-11 14:15 | FL ---
EXAMINATION TYPE: FL guided pain mgmt statistic DATE OF EXAM: 02/11/2024 HISTORY: Fluoroscopy time Total dose area product (DAP) in uGy*m?, mGy*cm? (or similar): 0.90523 IMPRESSION: 1. Fluoroscopy time.
[2024-02-11 14:43] VITALS: BP 102/68; PULSE 72
== END 2024-02-11 14:30 | disposition home or self-care (01) ==
LOC: ORPAIN 11:35
PROVIDERS: ATTEND Pain Medicine Interventional Pain Medicine
DX: M47.816 Spondylosis without myelopathy or radiculopathy, lumbar region (principal); M51.36 Other intervertebral disc degeneration, lumbar region; Z88.0 Allergy status to penicillin; I10 Essential (primary) hypertension; E78.5 Hyperlipidemia, unspecified; F41.9 Anxiety disorder, unspecified; K21.9 Gastro-esophageal reflux disease without esophagitis; Z79.899 Other long term (current) drug therapy; Z79.82 Long term (current) use of aspirin; F17.200 Nicotine dependence, unspecified, uncomplicated
CPT/HCPCS: 64636 ×2; 64635; J2250; J3010; J2795

== ENCOUNTER → 2024-03-09 | Outpatient (CLI) | payer OTHER ==
[2024-03-09 13:13] VITALS: BP 139/90; PULSE 89; RESP 15; TEMP 98.5
--- NOTE | 2024-03-09 15:08 | P.PAINPG ---
PQRS Measure Charge Sheet Comment: HISTORY OF PRESENT ILLNESS: A 58 yr old male w sister and niece at side presents today w severe and chronic LBP secondary to spondylolisthesis, DDD and facet arthropathy without myelopathy for evaluation s/p BL RFA L3-L5. Pt states he experienced 25 % pain relief s/p procedure. Pt states pain level is provoked at 6 /10 in intensity, constant, localized in the lower lumbar spine, achy in character w shooting pain L & R of midline. Pain is provoked by walking, standing for periods of 15 min or more. Pain is alleviated by medications, ice, PT x 6 wks in March 2023, massage therapy without relief, chiropractic treatments without relief, sleeping w a wedge, bending, physician guided home based stretching regimen every morning since March 2023, repositioning and rest. Oswestry axial pain score of 20. He is disinterested in surgery at this time. Interventional procedures include MARGARETH L3-L4 x2, BL RFA L3-L5 (Jan 2024) Medications include Suboxone 8-2mg #30, Flexeril 5mg #90, Sulindac 200mg #60, ASA REVIEW OF ORGAN SYSTEMS: CONSTITUTIONAL: No fevers or chills. No recent weight los s. NEUROLOGICAL: + numbness and tingling along the distal extremities. No seizure disorders or headaches. MUSCULOSKELETAL: + pain PSYCHIATRIC: Denies current depression or suicidal thoughts. Physical Examinations : Constitutional : Cooperative , not in acute distress . Neurologic : Cranial nerve II to XII intact. No focal neurological deficits. Psychiatric : alert & oriented x 3. Matching mood & appropriate affect. Judgment & insight intact. Musculoskeletal : Cervical Spine Motor strength in the deltoid and biceps: Normal right side. Normal Left side Motor strength biceps and the wrist ex tensors: Normal right side . Normal left side Motor strength in the triceps muscle: Normal right side. Normal left side Deep tendon reflexes: Normal at the biceps. Normal at Brachioradialis. Normal at triceps Vertebral body tenderness to deep palpation over Cervical facet loading test: positive bilaterally Spurling test: positive bilaterally Neck distraction test: positive bilaterally Krishna sign: positive bilaterally Lumbar spine Motor strength lower extremities ,thigh and legs 5/5 Right side , 5/5 Left side Deep tendon reflexes : Normal Knee Jerk. Normal Ankle Jerk Vertebral body tenderness over L4 Pope Test positive over BL L3-L4 Lumbar facet Loading Test: positive Right / positive Left over BL L4-L5, L5-S1 Range of motion of the lumbar spine Flexion 30 degrees, extension 10 degrees Straight Leg Raise test: Left/ Right positive at degrees Montez test: positive right / positive left. Severe tenderness over the Sacroiliac joint on the Right / Left sides Gaenslen test: positive bilaterally Seated flexion test: positive bilaterally. Sacral spine : Severe tenderness over the Sacroiliac joint: right side / left side Range of motion: Flexion of the lumbar spine <60 degrees Range of motion: Extension of the lumbar spine <20 degrees Gaenslen's Test positive Frank's Test positive Montez test: positive right side / left side Thigh Thrust Test Sacral Thrust Test Imaging: MRI noncontrast of the lumbar spine. 04/01/23 reviewed Assessment/ Plan : Lumbar spondylolisthesis Recommendation of medication refills. Repeat UDS. Flexeril 5mg #90, Sulindac 200mg #60, Suboxone 8-2mg #30 1 RF. Blood tox screen script provided 01/13/24. Narcotic agreement signed 11/18/22. Pt stated he will stop cannabis use completely to adhere to the narcotic agreement. All questions answered. I have spent greater than 30 minutes on patient care today. Dr Spencer was available by phone for the evaluation of this patient. The time was used to review the medical records including relevant urine studies and Prescription history (MAPs), review of the available imaging, evaluation and examination of the patient, coordination of care with the medical staff and if applicable referring physicians, as well as creation of the medical record - Pain Location Bilateral Lower Back Non-Pharmacological Interventions: Inactivity, Position/Reposition Pharmacological Interventions: Epidural, Scheduled Medication PQRS Narrative: Narcotic Agreement Date Signed 11/18/23 Hx Alcohol Use (MH) No Home Medications: Ambulatory Orders Lisinopril-Hctz 20-12.5 mg [Zestoretic 20-12.5] 1 tab PO BID 05/19/23 Omeprazole [PriLOSEC] 1 tab PO DAILY 05/19/23 Aspirin [Aspirin EC] 500 mg PO QID 06/16/23 Buprenorphine HCl/Naloxone HCl [Buprenorphine HCl/Naloxone HCl 8-2 mg] 1 tab SL BID 30 Days #60 tab 03/09/24 Cyclobenzaprine HCl 1 tab PO TID PRN 30 Days #90 tab 03/09/24 Cyclobenzaprine [Flexeril] 5 mg PO TID PRN 30 Days #90 tablet 03/09/24 Sulindac 200 mg PO BID 30 Days #60 tab 03/09/24 Sulindac 200 mg PO BID 30 Days #60 tablet 03/09/24 Controlled Substance Measures - Controlled Substance Measures Is patient prescribed a controlled substance at discharge?: Yes When asked, does pt state using other controlled substances?: Yes If prescribed controlled substance>3 days was MAPS reviewed?: Yes
== END ==
LOC: PNWHC3 12:11
PROVIDERS: ATTEND Specialist
DX: M43.16 Spondylolisthesis, lumbar region (principal); G89.29 Other chronic pain; M51.37 Other intervertebral disc degeneration, lumbosacral region; Z88.0 Allergy status to penicillin
CPT/HCPCS: 99211

== ENCOUNTER → 2024-05-04 | Outpatient (CLI) | payer OTHER ==
[2024-05-04 13:03] VITALS: BP 115/71; PULSE 62; RESP 16
--- NOTE | 2024-05-04 15:09 | P.PAINPG ---
PQRS Measure Charge Sheet Comment: HISTORY OF PRESENT ILLNESS: A 58 yr old wheelchair bound male w sister and niece at side presents today w severe and chronic LBP secondary to spondylolisthesis, DDD and facet arthropathy without myelopathy for evaluation s/p BL RFA L3-L5. Pt states he experienced 25 % pain relief s/p procedure. Pt states pain level is provoked at 6 /10 in intensity, constant, localized in the lower lumbar spine, achy in character w shooting pain L & R of midline. Pain is provoked by walking, standing for periods of 15 min or more. Pain is alleviated by medications, ice, PT x 6 wks in March 2023, massage therapy without relief, chiropractic treatments without relief, sleeping w a wedge, bending, physician guided home based stretching regimen every morning since March 2023, repositioning and rest. Oswestry axial pain score of 20. Interventional procedures include MARGARETH L3-L4 x2, BL RFA L3-L5 (Jan 2024) Medications include Suboxone 8-2mg #30, Flexeril 5mg #90, Sulindac 200mg #60, ASA REVIEW OF ORGAN SYSTEMS: CONSTITUTIONAL: No fevers or chills. No recent weight loss. NEUROLOGICAL: + numbness and tingling along the distal extremities. No seizure disorders or headaches. MUSCULOSKELETAL: + pain PSYCHIATRIC: Denies current depression or suicidal thoughts. Physical Examinations : Constitutional : Cooperative , not in acute distress . Neurologic : Cranial nerve II to XII intact. No focal neurological deficits. Psychiatric : alert & oriented x 3. Matching mood & appropriate affect. Judgment & insight intact. Musculoskeletal : Cervical Spine Motor strength in the deltoid and biceps: Normal right side. Normal Left side Motor strength biceps and the wrist extensors: Normal right side . Normal left side Motor strength in the triceps muscle: Normal right side. Normal left side Deep tendon reflexes: Normal at the biceps. Normal at Brachioradialis. Normal at triceps Vertebral body tenderness to deep palpation over Cervical facet loading test: positive bilaterally Spurling test: positive bilaterally Neck distraction test: positive bilaterally Krishna sign: positive bilaterally Lumbar spine Motor strength lower extremities ,thigh and legs 5/5 Right side , 5/5 Left side Deep tendon reflexes : Normal Knee Jerk. Normal Ankle Jerk Vertebral body tenderness over L4 Pope Test positive over BL L3-L4 Lumbar facet Loading Test: positive Right / positive Left over BL L4-L5, L5-S1 Range of motion of the lumbar spine Flexion 30 degrees, extension 10 degrees Straight Leg Raise test: Left/ Right positive at degrees Montez test: positive right / positive left. Severe tenderness over the Sacroiliac joint on the Right / Left sides Gaenslen test: positive bilaterally Seated flexion test: positive bilaterally. Sacral spine : Severe tenderness over the Sacroiliac joint: right side / left side Range of motion: Flexion of the lumbar spine <60 degrees Range of motion: Extension of the lumbar spine <20 degrees Gaenslen's Test positive Frank's Test positive Montez test: positive right side / left side Thigh Thrust Test Sacral Thrust Test Imaging: MRI noncontrast of the lumbar spine. 04/01/23 reviewed Assessment/ Plan : Lumbar spondylolisthesis Recommendation of medication refills. Insufficient urine sample to run UDS at last visit. Repeat blood tox screen 05/04/24. Flexeril 5mg #90, Sulindac 200mg #60, Suboxone 8-2mg #30 1 RF. Narcotic agreement signed 11/18/22. Pt stated he will stop cannabis use completely to adhere to the narcotic agreement. All questions answered. I have spent greater than 30 minutes on patient care today. Dr Spencer was available by phone for the evaluation of this patient. The time was used to review the medical records including relevant urine studies and Prescription history (MAPs), review of the available imaging, evaluation and examination of the patient, coordination of care with the medical staff and if applicable referring physicians, as well as creation of the medical record PQRS Narrative: Narcotic Agreement Date Signed 11/18/23 Hx Alcohol Use (MH) No Home Medications: Ambulatory Orders Lisinopril-Hctz 20-12.5 mg [Zestoretic 20-12.5] 1 tab PO BID 05/19/23 Omeprazole [PriLOSEC] 1 tab PO DAILY 05/19/23 Aspirin [Aspirin EC] 500 mg PO QID 06/16/23 Buprenorphine/Naloxone 8Mg/2Mg [Suboxone 8-2Mg Film] 1 film SL BID 30 Days #60 film 03/09/24 Cyclobenzaprine HCl 1 tab PO TID PRN 30 Days #90 tab 03/09/24 Cyclobenzaprine [Flexeril] 5 mg PO TID PRN 30 Days #90 tablet 03/09/24 Sulindac 200 mg PO BID 30 Days #60 tab 03/09/24 Sulindac 200 mg PO BID 30 Days #60 tablet 03/09/24 Controlled Substance Measures - Controlled Substance Measures Is patient prescribed a controlled substance at discharge?: Yes When asked, does pt state using other controlled substances?: No If prescribed controlled substance>3 days was MAPS reviewed?: Yes
== END ==
LOC: PNWHC3 12:07
PROVIDERS: ATTEND Specialist
DX: M43.17 Spondylolisthesis, lumbosacral region (principal); Z88.0 Allergy status to penicillin
CPT/HCPCS: 99211

== ENCOUNTER → 2024-05-04 | Outpatient (CLI) | payer OTHER ==
[2024-05-05 11:05] LABS: Serum Amphetamine Negative; Serum Barbiturates Negative; Serum Benzodiazepine Negative; Serum Cocaine Negative; Serum Methadone Negative; Serum Opiates Negative; Serum Phencyclidine Negative; Serum Propoxyphene Negative; Serum THC (Cannabis) Negative
== END | disposition home or self-care (01) ==
LOC: LABWHC1 13:07
PROVIDERS: ATTEND Physician Assistant Medical
DX: Z02.83 Encounter for blood-alcohol and blood-drug test (principal)
CPT/HCPCS: 36415; 80307

== ENCOUNTER → 2024-06-29 | Outpatient (CLI) | payer OTHER | LOC: PNWHC3 12:30 | PROVIDERS: ATTEND Specialist | DX: M47.26 Other spondylosis with radiculopathy, lumbar region (principal) | CPT/HCPCS: 99211 ==

== ENCOUNTER → 2024-08-24 | Outpatient (CLI) | payer OTHER ==
[2024-08-24 12:33] VITALS: BP 138/93; PULSE 85; RESP 16; TEMP 97.5
--- NOTE | 2024-08-24 14:44 | P.PAINPG ---
PQRS Measure Charge Sheet Comment: HISTORY OF PRESENT ILLNESS: A 58 yr old wheelchair bound male w sister and niece at side presents today w severe and chronic LBP secondary to spondylolisthesis, radiculopathy and facet arthropathy without myelopathy for evaluation. Pt states pain level is provoked at 6 /10 in intensity, constant, localized in the lower lumbar spine, achy in character w shooting pain L & R of midline. Pain is provoked by walking, standing for periods of 15 min or more. Pain is alleviated by medications, ice, PT x 6 wks in March 2023, massage therapy without relief, chiropractic treatments without relief, sleeping w a wedge, bending, physician guided home based stretching regimen every morning since March 2023, repositioning and rest. Interventional procedures include MARGARETH L3-L4 x2, BL RFA L3-L5 (Jan 2024) Medications include Suboxone 8-2mg #30, Flexeril 5mg #90, Sulindac 200mg #60, ASA REVIEW OF ORGAN SYSTEMS: CONSTITUTIONAL: No fevers or chills. No recent weight loss. NEUROLOGICAL: + numbness and tingling along the distal extremities. No seizure disorders or headaches. MUSCULOSKELETAL: + pain PSYCHIATRIC: Denies current depression or suicidal thoughts. Physical Examinations : Constitutional : Cooperative , not in acute distress . Neurologic : Cranial nerve II to XII intact. No focal neurological deficits. Psychiatric : alert & oriented x 3. Matching mood & appropriate affect. Judgment & insight intact. Musculoskeletal : Cervical Spine Motor strength in the deltoid and biceps: Normal right side. Normal Left side Motor strength biceps and the wrist extensors: Normal right side . Normal left side Motor strength in the triceps muscle: Normal right side. Normal left side Deep tendon reflexes: Normal at the biceps. Normal at Brachioradialis. Normal at triceps Vertebral body tenderness to deep palpation over Cervical facet loading test: positive bilaterally Spurling test: positive bilaterally Neck distraction test: positive bilaterally Krishna sign: positive bilaterally Lumbar spine Motor strength lower extremities ,thigh and legs 5/5 Right side , 5/5 Left side Deep tendon reflexes : Normal Knee Jerk. Normal Ankle Jerk Vertebral body tenderness over L4 Pope Test positive over BL L3-L4 Lumbar facet Loading Test: positive Right / positive Left over BL L4-L5, L5-S1 Range of motion of the lumbar spine Flexion 30 degrees, extension 10 degrees Straight Leg Raise test: Left/ Right positive at degrees Montez test: positive right / positive left. Severe tenderness over the Sacroiliac joint on the Right / Left sides Gaenslen test: positive bilaterally Seated flexion test: positive bilaterally. Sacral spine : Severe tenderness over the Sacroiliac joint: right side / left side Range of motion: Flexion of the lumbar spine <60 degrees Range of motion: Extension of the lumbar spine <20 degrees Gaenslen's Test positive Frank's Test positive Montez test: positive right side / left side Thigh Thrust Test Sacral Thrust Test Imaging: MRI noncontrast of the lumbar spine. 04/01/23 reviewed Assessment/ Plan : Lumbar spondylolisthesis Recommendation of medication refills. UDS 05/04/24 reviewed. Flexeril 5mg #90, Sulindac 200mg #60, Suboxone 8-2mg #30 1 RF. Narcotic agreement signed 11/18/22. Pt stated he will stop cannabis use completely to adhere to the narcotic agr eement. All questions answered. I have spent greater than 30 minutes on patient care today. Dr Spencer was available by phone for the evaluation of this patient. The time was used to review the medical records including relevant urine studies and Prescription history (MAPs), review of the available imaging, evaluation and examination of the patient, coordination of care with the medical staff and if applicable referring physicians, as well as creation of the medical record - Pain Location Bilateral Lower Back Non-Pharmacological Interventions: Heat, Ice, Inactivity, Physical Therapy, Position/Reposition, Sitting Pharmacological Interventions: Block, Epidural, PRN Medication, Scheduled Medication, Topical Medication PQRS Narrative: Narcotic Agreement Date Signed 11/18/23 Hx Alcohol Use (MH) No Home Medications: Ambulatory Orders Lisinopril-Hctz 20-12.5 mg [Zestoretic 20-12.5] 1 tab PO BID 05/19/23 Omeprazole [PriLOSEC] 1 tab PO DAILY 05/19/23 Aspirin [Aspirin EC] 500 mg PO QID 06/16/23 Buprenorphine/Naloxone 8Mg/2Mg [Suboxone 8-2Mg Film] 1 film SL BID 30 Days #60 film 08/24/24 Cyclobenzaprine [Flexeril] 5 mg PO TID PRN 30 Days #90 tablet 08/24/24 Sulindac 200 mg PO BID 30 Days #60 tablet 08/24/24 Controlled Substance Measures - Controlled Substance Measures Is patient prescribed a controlled substance at discharge?: Yes When asked, does pt state using other controlled substances?: No If prescribed controlled substance>3 days was MAPS reviewed?: Yes
== END | disposition home or self-care (01) ==
LOC: PNWHC3 12:07
PROVIDERS: ATTEND Specialist
DX: M47.816 Spondylosis without myelopathy or radiculopathy, lumbar region
CPT/HCPCS: 99211

== ENCOUNTER → 2024-10-25 | Outpatient (CLI) | payer OTHER ==
[2024-10-25 12:17] VITALS: BP 147/91; PULSE 80; RESP 16; TEMP 97.1
--- NOTE | 2024-10-25 14:43 | P.PAINPG ---
Objective - Vital Signs Vital signs: Vital Signs Temp 97.1 F L 10/25/24 12:15 Pulse 80 10/25/24 12:15 Resp 16 10/25/24 12:15 BP 147/91 10/25/24 12:15 Pulse Ox 99 10/25/24 12:15 FiO2 Intake & Output 10/24/24 10/25/24 10/25/24 18:59 06:59 18:59 Weight 95.254 kg PQRS Measure Charge Sheet Mode of Arrival: Ambulatory Comment: HISTORY OF PRESENT ILLNESS: A 58 yr old wheelchair bound male w sister and niece at side presents today w severe and chronic LBP secondary to spondylolisthesis, radiculopathy and facet arthropathy without myelopathy for evaluation. Pt states pain level is provoked at 6 /10 in intensity, constant, localized in the lower lumbar spine, achy in character w shooting pain L & R of midline. Pain is provoked by walking, standing for periods of 15 min or more. Pain is alleviated by medications, ice, PT x 6 wks in March 2023, massage therapy without relief, chiropractic treatments without relief, sleeping w a wedge, bending, physician guided home based stretching regimen every morning since March 2023, repositioning and rest. Interventional procedures include MARGARETH L3-L4 x2, BL RFA L3-L5 (Jan 2024) Medications include Suboxone 8-2mg #30, Flexeril 5mg #90, Sulindac 200mg #60, ASA REVIEW OF ORGAN SYSTEMS: CONSTITUTIONAL: No fevers or chills. No recent weight loss. NEUROLOGICAL: + numbness and tingling along the distal extremities. No seizure disorders or headaches. MUSCULOSKELETAL: + pain PSYCHIATRIC: Denies current depression or suicidal thoughts. Physical Examinations : Constitutional : Cooperative , not in acute distress . Neurologic : Cranial nerve II to XII intact. No focal neurological deficits. Psychiatric : alert & oriented x 3. Matching mood & appropriate affect. Judgment & insight intact. Musculoskeletal : Cervical Spine Motor strength in the deltoid and biceps: Normal right side. Normal Left side Motor strength biceps and the wrist extensors: Normal right side . Normal left side Motor strength in the triceps muscle: Normal right side. Normal left side Deep tendon reflexes: Normal at the biceps. Normal at Brachioradialis. Normal at triceps Vertebral body tenderness to deep palpation over Cervical facet loading test: positive bilaterally Spurling test: positive bilaterally Neck distraction test: positive bilaterally Krishna sign: positive bilaterally Lumbar spine Motor strength lower extremities ,thigh and legs 5/5 Right side , 5/5 Left side Deep tendon reflexes : Normal Knee Jerk. Normal Ankle Jerk Vertebral body tenderness over L4 Pope Test positive over BL L3-L4 Lumbar facet Loading Test: positive Right / positive Left over BL L4-L5, L5-S1 Range of motion of the lumbar spine Flexion 30 degrees, extension 10 degrees Straight Leg Raise test: Left/ Right positive at degrees Montez test: positive right / positive left. Severe tenderness over the Sacroiliac joint on the Right / Left sides Gaenslen test: positive bilaterally Seated flexion test: positive bilaterally. Sacral spine : Severe tenderness over the Sacroiliac joint: right side / left side Range of motion: Flexion of the lumbar spine <60 degrees Range of motion: Extension of the lumbar spine <20 degrees Gaenslen's Test positive Frank's Test positive Montez test: positive right side / left side Thigh Thrust Test Sacral Thrust Test Imaging: MRI noncontrast of the lumbar spine. 04/01/23 reviewed Assessment/ Plan : Lumbar spondylolisthesis Recommendation of medication refills. UDS 05/04/24 reviewed and consistent. Flexeril 5mg #90, Sulindac 200mg #60, Suboxone 8-2mg #30 1 RF. Narcotic agreement signed 11/18/23. Pt stated he will stop cannabis use completely to adhere to the narcotic agreement. All questions answered. I have spent greater than 30 minutes on patient care today. Dr Spencer was available by phone for the evaluation of this patient. The time was used to review the medical records including relevant urine studies and Prescription history (MAPs), review of the available imaging, evaluation and examination of the patient, coordination of care with the medical staff and if applicable referring physicians, as well as creation of the medical record - Pain Location Bilateral Lower Back Non-Pharmacological Interventions: Chiropractic Treatment, Ice, Position/Reposition Pharmacological Interventions: PRN Medication, Scheduled Medication PQRS Narrative: Narcotic Agreement Date Signed 11/18/23 Blood Pressure 147/91 Pain Intensity [Bilateral 6 Lower Back] Scale Used Numeric (1 - 10) Hx Alcohol Use (MH) No Home Medications: Ambulatory Orders Lisinopril-Hctz 20-12.5 mg [Zestoretic 20-12.5] 1 tab PO BID 05/19/23 Omeprazole [PriLOSEC] 1 tab PO DAILY 05/19/23 Aspirin [Aspirin EC] 500 mg PO QID 06/16/23 Buprenorphine/Naloxone 8Mg/2Mg [Suboxone 8-2Mg Film] 1 film SL BID 30 Days #60 film 08/24/24 Cyclobenzaprine [Flexeril] 5 mg PO TID PRN 30 Days #90 tablet 08/24/24 Sulindac 200 mg PO BID 30 Days #60 tablet 08/24/24 Controlled Substance Measures - Controlled Substance Measures Is patient prescribed a controlled substance at discharge?: Yes When asked, does pt state using other controlled substances?: No If prescribed controlled substance>3 days was MAPS reviewed?: Yes
== END ==
LOC: PNWHC3 12:00
PROVIDERS: ATTEND Specialist
DX: M47.26 Other spondylosis with radiculopathy, lumbar region (principal); M43.16 Spondylolisthesis, lumbar region; Z88.0 Allergy status to penicillin
CPT/HCPCS: 99211

== ENCOUNTER → 2025-02-14 | Outpatient (CLI) | payer OTHER ==
[2025-02-14 12:26] VITALS: BP 134/67; PULSE 92; RESP 17; TEMP 97.8
--- NOTE | 2025-02-14 15:31 | P.PAINPG ---
Objective - Vital Signs Vital signs: Vital Signs Temp 97.8 F 02/14/25 12:23 Pulse 92 02/14/25 12:23 Resp 17 02/14/25 12:23 BP 134/67 02/14/25 12:23 Pulse Ox 100 02/14/25 12:23 FiO2 Intake & Output 02/13/25 02/14/25 02/14/25 18:59 06:59 18:59 Weight 95.254 kg PQRS Measure Charge Sheet Mode of Arrival: Ambulatory Comment: HISTORY OF PRESENT ILLNESS: A 59 yr old wheelchair bound male w sister and niece at side presents today w severe and chronic LBP secondary to spondylolisthesis, radiculopathy and facet arthropathy without myelopathy for evaluation. Pt states pain level is provoked at 6-7 /10 in intensity, constant, localized in the lower lumbar spine, achy in character w shooting pain L & R of midline. Pain is provoked by walking, standing for periods of 15 min or more. Pain is alleviated by medications, ice, PT x 6 wks in March 2023, massage therapy without relief, chiropractic treatments without relief, sleeping w a wedge, bending, physician guided home based stretching regimen every morning since March 2023, repositioning and rest. Interventional procedures include MARGARETH L3-L4 x2, BL RFA L3-L5 (Jan 2024) Medications include Suboxone 8-2mg #30, Flexeril 5mg #90, Sulindac 200mg #60, A REVIEW OF ORGAN SYSTEMS: CONSTITUTIONAL: No fevers or chills. No recent weight loss. NEUROLOGICAL: + numbness and tingling along the distal extremities. No seizure disorders or headaches. MUSCULOSKELETAL: + pain PSYCHIATRIC: Denies current depression or suicidal thoughts. Physical Examinations : Constitutional : Cooperative , not in acute distress . Neurologic : Cranial nerve II to XII intact. No focal neurological deficits. Psychiatric : alert & oriented x 3. Matching mood & appropriate affect. Judgment & insight intact. Musculoskeletal : Cervical Spine Motor strength in the deltoid and biceps: Normal right side. Normal Left side Motor strength biceps and the wrist extensors: Normal right side . Normal left side Motor strength in the triceps muscle: Normal right side. Normal left side Deep tendon reflexes: Normal at the biceps. Normal at Brachioradialis. Normal at triceps Vertebral body tenderness to deep palpation over Cervical facet loading test: positive bilaterally Spurling test: positive bilaterally Neck distraction test: positive bilaterally Krishna sign: positive bilaterally Lumbar spine Motor strength lower extremities ,thigh and legs 5/5 Right side , 5/5 Left side Deep tendon reflexes : Normal Knee Jerk. Normal Ankle Jerk Vertebral body tenderness over L4 Pope Test positive over BL L3-L4 Lumbar facet Loading Test: positive Right / positive Left over BL L4-L5, L5-S1 Range of motion of the lumbar spine Flexion 30 degrees, extension 10 degrees Straight Leg Raise test: Left/ Right positive at degrees Montez test: positive right / positive left. Severe tenderness over the Sacroiliac joint on the Right / Left sides Gaenslen test: positive bilaterally Seated flexion test: positive bilaterally. Sacral spine : Severe tenderness over the Sacroiliac joint: right side / left side Range of motion: Flexion of the lumbar spine <60 degrees Range of motion: Extension of the lumbar spine <20 degrees Gaenslen's Test positive Frank's Test positive Montez test: positive right side / left side Thigh Thrust Test Sacral Thrust Test Imaging: MRI noncontrast of the lumbar spine. 04/01/23 reviewed Assessment/ Plan : Lumbar spondylolisthesis Recommendation of medication refills. UDS 05/04/24 reviewed and consistent. Flexeril 5mg #90, Sulindac 200mg #60, Suboxone 8-2mg #30 1 RF. Renewed Narcotic agreement 12/20/24. Pt stated he will stop cannabis use completely to adhere to the narcotic agreement. All questions answered. I have spent greater than 30 minutes on patient care today. Dr Spencer was available by phone for the evaluation of this patient. The time was used to review the medical records including relevant urine studies and Prescription history (MAPs), review of the available imaging, evaluation and examination of the patient, coordination of care with the medical staff and if applicable referring physicians, as well as creation of the medical record - Pain Location Lower Back Non-Pharmacological Interventions: Ice PQRS Narrative: Narcotic Agreement Date Signed 11/18/23 Blood Pressure 134/67 Pain Intensity [Lower Back] 7 Scale Used Numeric (1 - 10) Hx Alcohol Use (MH) No Home Medications: Ambulatory Orders Lisinopril-Hctz 20-12.5 mg [Zestoretic 20-12.5] 1 tab PO BID 05/19/23 Omeprazole [PriLOSEC] 1 tab PO DAILY 05/19/23 Aspirin [Aspirin EC] 500 mg PO QID 06/16/23 Cyclobenzaprine [Flexeril] 5 mg PO TID PRN 30 Days #90 tablet 12/20/24 Sulindac 200 mg PO BID 30 Days #60 tablet 12/20/24 Buprenorphine/Naloxone 8Mg/2Mg [Suboxone 8-2Mg Film] 1 film SL BID 30 Days #60 film 02/14/25 Controlled Substance Measures - Controlled Substance Measures Is patient prescribed a controlled substance at discharge?: Yes When asked, does pt state using other controlled substances?: No If prescribed controlled substance>3 days was MAPS reviewed?: Yes
== END ==
LOC: PNWHC3 12:02
PROVIDERS: ATTEND Specialist
DX: M43.16 Spondylolisthesis, lumbar region (principal); G89.4 Chronic pain syndrome; Z88.0 Allergy status to penicillin
CPT/HCPCS: 99212

== ENCOUNTER → 2025-05-09 | Outpatient (CLI) | payer OTHER ==
[2025-05-09 13:11] VITALS: BP 123/78; PULSE 60; RESP 21
--- NOTE | 2025-05-09 16:16 | P.PAINPG ---
Objective - Vital Signs Vital signs: Vital Signs Temp Pulse 60 05/09/25 13:06 Resp 21 05/09/25 13:06 BP 123/78 05/09/25 13:06 Pulse Ox 99 05/09/25 13:06 FiO2 Intake & Output 05/08/25 05/09/25 05/09/25 18:59 06:59 18:59 Weight 95.254 kg PQRS Measure Charge Sheet Mode of Arrival: Ambulatory Comment: HISTORY OF PRESENT ILLNESS: A 59 yr old wheelchair bound male w sister and niece at side presents today w severe and chronic LBP secondary to spondylolisthesis, radiculopathy and facet arthropathy without myelopathy for evaluation. Pt states pain level is provoked at 6-7 /10 in intensity, constant, localized in the lower lumbar spine, achy in character w shooting pain L & R of midline. Pain is provoked by walking, standing for periods of 15 min or more. Pain is alleviated by medications, ice, PT x 6 wks in March 2023, massage therapy without relief, chiropractic treatments without relief, sleeping w a wedge, bending, physician guided home based stretching regimen every morning since March 2023, repositioning and rest. Interventional procedures include MARGARETH L3-L4 x2, BL RFA L3-L5 (Jan 2024) Medications include Suboxone 8-2mg #30, Flexeril 5mg #90, Sulindac 200mg #60, ASA REVIEW OF ORGAN SYSTEMS: CONSTITUTIONAL: No fevers or chills. No recent weight loss. NEUROLOGICAL: + numbness and tingling along the distal extremities. No seizure disorders or headaches. MUSCULOSKELETAL: + pain PSYCHIATRIC: Denies current depression or suicidal thoughts. Physical Examinations : Constitutional : Cooperative , not in acute distress . Neurologic : Cranial nerve II to XII intact. No focal neurological deficits. Psychiatric : alert & oriented x 3. Matching mood & appropriate affect. Judgment & insight intact. Musculoskeletal : Cervical Spine Motor strength in the deltoid and biceps: Normal right side. Normal Left side Motor strength biceps and the wrist extensors: Normal right side . Normal left side Motor strength in the triceps muscle: Normal right side. Normal left side Deep tendon reflexes: Normal at the biceps. Normal at Brachioradialis. Normal at triceps Vertebral body tenderness to deep palpation over Cervical facet loading test: positive bilaterally Spurling test: positive bilaterally Neck distraction test: positive bilaterally Krishna sign: positive bilaterally Lumbar spine Motor strength lower extremities ,thigh and legs 5/5 Right side , 5/5 Left side Deep tendon reflexes : Normal Knee Jerk. Normal Ankle Jerk Vertebral body tenderness over L4 Pope Test positive over BL L3-L4 Lumbar facet Loading Test: positive Right / positive Left over BL L4-L5, L5-S1 Range of motion of the lumbar spine Flexion 30 degrees, extension 10 degrees Straight Leg Raise test: Left/ Right positive at degrees Montez test: positive right / positive left. Severe tenderness over the Sacroiliac joint on the Right / Left sides Gaenslen test: positive bilaterally Seated flexion test: positive bilaterally. Sacral spine : Severe tenderness over the Sacroiliac joint: right side / left side Range of motion: Flexion of the lumbar spine <60 degrees Range of motion: Extension of the lumbar spine <20 degrees Gaenslen's Test positive Frank's Test positive Montez test: positive right side / left side Thigh Thrust Test Sacral Thrust Test Imaging: MRI noncontrast of the lumbar spine. 04/01/23 reviewed Assessment/ Plan : Lumbar spondylolisthesis Recommendation of medication refills. UDS 05/04/24 reviewed and consistent. Flexeril 5mg #90, Sulindac 200mg #60, Suboxone 8-2mg #30 1 RF. Renewed Narcotic agreement 12/20/24. Pt stated he will stop cannabis use completely to adhere to the narcotic agreement. All questions answered. I have spent greater than 30 minutes on patient care today. Dr Spencer was available by phone for the evaluation of this patient. The time was used to review the medical records including relevant urine studies and Prescription history (MAPs), review of the available imaging, evaluation and examination of the patient, coordination of care with the medical staff and if applicable referring physicians, as well as creation of the medical record - Pain Location Lower Back Pharmacological Interventions: Medication PQRS Narrative: Narcotic Agreement Date Signed 11/18/23 Blood Pressure 123/78 Pain Intensity [Lower Back] 7 Scale Used Numeric (1 - 10) Hx Alcohol Use (MH) No Home Medications: Ambulatory Orders Lisinopril-Hctz 20-12.5 mg [Zestoretic 20-12.5] 1 tab PO BID 05/19/23 Omeprazole [PriLOSEC] 1 tab PO DAILY 05/19/23 Aspirin [Aspirin EC] 500 mg PO QID 06/16/23 Buprenorphine HCl/Naloxone HCl [Suboxone 8 mg-2 mg Sl Film] 1 film SL BID 30 Days #60 film 05/09/25 Cyclobenzaprine [Flexeril] 5 mg PO TID PRN 30 Days #90 tablet 05/09/25 Sulindac 200 mg PO BID 30 Days #60 tablet 05/09/25 Controlled Substance Measures - Controlled Substance Measures Is patient prescribed a controlled substance at discharge?: Yes When asked, does pt state using other controlled substances?: No If prescribed controlled substance>3 days was MAPS reviewed?: Yes
== END ==
LOC: PNWHC3 12:13
PROVIDERS: ATTEND Specialist
DX: M47.26 Other spondylosis with radiculopathy, lumbar region (principal); M43.16 Spondylolisthesis, lumbar region; Z88.0 Allergy status to penicillin
CPT/HCPCS: 99212